=== PATIENT | male | born 1990 | race Caucasian/White ===

== ENCOUNTER 2021-08-25 16:53 | Emergency (ER) | payer OTHER ==
[~2021-08-25] VITALS: Ht 175 cm; Wt 100.0 kg
--- NOTE | 2021-08-25 18:21 | ED Cardiac General ---
History of Present Illness General Chief Complaint: Cardiac/General Problems Stated Complaint: CP/PALPITATIONS Nursing Triage Note: PT TO ED W/ C/O PALPITATIONS ET CP ONSET 90 MINUTES PRIOR TO COMING TO ED AFTER GETTING OUT OF SHOWER AT HOME. PT STATES "THIS HAS HAPPENED BEFORE" ET REPORTS A CARDIAC HX. STATES WHEN SYMPTOMS ONSET, HE HAS CP, N/V. NO OTHER C/O VOICED. PT APPEARS TO BE SUNBURNED ET REPORTS ETOH CONSUMPTION YESTERDAY. Source: patient Exam Limitations: no limitations History of Present Illness Date Seen by Provider: Aug 25, 2021 Time Seen by Provider: 18:10 Initial Comments Here with report of palpitations started this afternoon and lasted around 90 minutes. Does have history of paroxysmal atrial tachycardia and is following up with a coat operator for that. Reports that he had some nausea and vomiting with this. Admits to being out in the sun [place] [employer] yesterday and does have a sunburn to his arms and legs. Admits to drinking quite a bit as well. States he may have had a bit of a hangover this morning as well. Heart rate is now improved. Aside from nausea and vomiting, denies other symptoms. Timing/Duration: 1-3 hours Severity: moderate (Palpitations) Location: central Activities at Onset: none Prior CP/Workup: other (Cardiac work-up in process) Modifying Factors: improves with rest ASA po ELECTION ASSISTANT: No Associated Systoms: No Cough, No Fever/Chills; Nausea/Vomiting; No Shortness of Air, No Weakness Allergies and Home Medications Allergies Coded Allergies: No Known Drug Allergies (Unverified , 12/24/11) Patient Home Medication List Home Medication List Reviewed: Yes Review of Systems Review of Systems Constitutional: see HPI; No chills, No fever EENTM: No Symptoms Reported Respiratory: Denies Cough, Denies Shortness of Air Cardiovascular: Chest Pain, Palpitations Gastrointestinal: Denies Abdominal Pain; Nausea, Vomiting Genitourinary: No Symptoms Reported Musculoskeletal: no symptoms reported All Other Systems Reviewed Negative Unless Noted: Yes Past Tjfupmc-Fjithd-Brlmty Hx Patient Social History Tobacco Use?: No Use of E-Cig and/or Vaping dev: No Substance use?: No Alcohol Use?: Yes Alcohol Frequency: Rarely Pt feels they are or have been: No Past Medical History Surgeries: No Respiratory: No Cardiac: Yes Palpitations Neurological: No Family Medical History Reviewed Nursing Family Hx No Pertinent Family Hx Physical Exam Vital Signs Vital Signs - First Documented 08/25/21 17:14 Temp 36.9 Pulse 72 Resp 18 B/P (MAP) 122/84 (97) Pulse Ox 99 O2 Delivery Room Air Capillary Refill : Greater Than 3 Seconds Height, Weight, BMI Height: '" Weight: lbs. oz. kg; 32.00 BMI Method:Stated General Appearance: No Apparent Distress, WD/WN HEENT: PERRL/EOMI, Pharynx Normal Neck: Non Tender, Supple Respiratory: Lungs Clear, Normal Breath Sounds Cardiovascular: Regular Rate, Rhythm, No Murmur Gastrointestinal: Non Tender, Soft Extremity: Normal Range of Motion, Non Tender Neurologic/Psychiatric: Alert, Oriented x3 Skin: Normal Color, Warm/Dry Progress/Results/Core Measures Results/Orders Lab Results Laboratory Tests Test 08/25/21 17:33 Range/Units White Blood Count 7.1 4.3-11.0 10^3/uL Red Blood Count 4.89 4.30-5.52 10^6/uL Hemoglobin 14.8 13.3-17.7 g/dL Hematocrit 43 40-54 % Mean Corpuscular Volume 89 80-99 fL Mean Corpuscular Hemoglobin 30 25-34 pg Mean Corpuscular Hemoglobin Concent 34 32-36 g/dL Red Cell Distribution Width 13.0 10.0-14.5 % Platelet Count 232 130-400 10^3/uL Mean Platelet Volume 9.4 9.0-12.2 fL Immature Granulocyte % (Auto) 0 % Neutrophils (%) (Auto) 67 42-75 % Lymphocytes (%) (Auto) 17 12-44 % Monocytes (%) (Auto) 11 0-12 % Eosinophils (%) (Auto) 3 0-10 % Basophils (%) (Auto) 1 0-10 % Neutrophils # (Auto) 4.7 1.8-7.8 10^3/uL Lymphocytes # (Auto) 1.2 1.0-4.0 10^3/uL Monocytes # (Auto) 0.8 0.0-1.0 10^3/uL Eosinophils # (Auto) 0.2 0.0-0.3 10^3/uL Basophils # (Auto) 0.1 0.0-0.1 10^3/uL Immature Granulocyte # (Auto) 0.0 0.0-0.1 10^3/uL Sodium Level 139 135-145 MMOL/L Potassium Level 4.0 3.6-5.0 MMOL/L Chloride Level 102 98-107 MMOL/L Carbon Dioxide Level 24 21-32 MMOL/L Anion Gap 13 5-14 MMOL/L Blood Urea Nitrogen 12 7-18 MG/DL Creatinine 1.31 H 0.60-1.30 MG/DL Estimat Glomerular Filtration Rate 76 BUN/Creatinine Ratio 9 Glucose Level 97 70-105 MG/DL Calcium Level 9.5 8.5-10.1 MG/DL Corrected Calcium 9.2 8.5-10.1 MG/DL Total Bilirubin 1.7 H 0.1-1.0 MG/DL Aspartate Amino Transf (AST/SGOT) 48 H 5-34 U/L Alanine Aminotransferase (ALT/SGPT) 62 H 0-55 U/L Alkaline Phosphatase 65 40-136 U/L Troponin I < 0.028 <0.028 NG/ML Total Protein 7.6 6.4-8.2 GM/DL Albumin 4.4 3.2-4.5 GM/DL My Orders Orders - DOLLY WOLF MD Cbc With Automated Diff (08/25/21 18:19) Comprehensive Metabolic Panel (08/25/21 18:19) Troponin I Leta (08/25/21 18:19) Ed Iv/Invasive Line Start (08/25/21 18:19) Lactated Ringers (Lr 1000 Ml Iv Solution (08/25/21 18:30) Medications Given in ED Current Medications Medications Dose Ordered Sig/Navid Route Start Time Stop Time Status Last Admin Dose Admin Lactated Ringer's 1,000 ml @ 0 mls/hr Q0M ONCE IV 08/25/21 18:30 08/25/21 18:34 DC 08/25/21 18:25 0 MLS/HR Vital Signs/I&O 08/25/21 08/25/21 17:14 18:54 Temp 36.9 Pulse 72 62 Resp 18 14 B/P (MAP) 122/84 (97) 109/73 Pulse Ox 99 97 O2 Delivery Room Air Room Air Blood Pressure Mean: 97 Progress Progress Note : Progress Note Seen and evaluated. IV, labs and EKG ordered. LR 1 L bolus. Monitor patient. 1900: Heart rate now high 50s low 60s and no pain. Labs reviewed. No indication for further evaluation and patient is more towards baseline. I do believe this is likely a mixed picture with his atrial tachycardia and dehydration after drinking yesterday. This was discussed with patient and family. Overall he is feeling better so we will discharge home. Discharged home with return precautions. Patient verbalized understanding instructions and agreement with plan. Initial ECG Impression Date: Aug 25, 2021 Initial ECG Impression Time: 17:25 Initial ECG Rate: 76 Initial ECG Rhythm: Normal Sinus Comment Sinus rhythm with left anterior fascicular block. Left axis deviation. No evidence of ST elevation DE. No previous available for comparison. Interpreted by me. Departure Impression Primary Impression: Paroxysmal atrial tachycardia Additional Impression: Dehydration Disposition: 01 HOME, SELF-CARE Condition: Improved Departure-Patient Inst. Decision time for Depature: 18:53 Referrals: NO,LOCAL PHYSICIAN (PCP/Family) Primary Care Physician Patient Instructions: Dehydration, Adult ED, Paroxysmal Supraventricular Tachycardia (DC), Sunburn (DC) Add. Discharge Instructions: All discharge instructions reviewed with patient and/or family. Voiced understanding. Ensure you are drinking plenty of fluids. Minimize alcohol intake as this may increase her risk for the atrial tachycardia. Follow-up with your coat operator as scheduled. Return for worse pain, vomiting, weakness, breathing problems, persistent tachycardia or other concerns as needed. DOLLY WOLF MD Aug 25, 2021 18:21
[2021-08-25 18:24] LABS: BASOPHILS # (AUTO) 0.1 10^3/uL (0.0-0.1); BASOPHILS % (AUTO) 1 % (0-10); EOSINOPHILS # (AUTO) 0.2 10^3/uL (0.0-0.3); EOSINOPHILS % (AUTO) 3 % (0-10); HEMATOCRIT 43 % (40-54); HEMOGLOBIN 14.8 g/dL (13.3-17.7); LYMPHOCYTES # (AUTO) 1.2 10^3/uL (1.0-4.0); LYMPHOCYTES % (AUTO) 17 % (12-44); MEAN CORPUSCULAR HEMOGLOBIN 30 pg (25-34); MEAN CORPUSCULAR HGB CONC 34 g/dL (32-36); MEAN CORPUSCULAR VOLUME 89 fL (80-99); MEAN PLATELET VOLUME 9.4 fL (9.0-12.2); MONOCYTES # (AUTO) 0.8 10^3/uL (0.0-1.0); MONOCYTES % (AUTO) 11 % (0-12); NEUTROPHILS # (AUTO) 4.7 10^3/uL (1.8-7.8); NEUTROPHILS % (AUTO) 67 % (42-75); PLATELET COUNT 232 10^3/uL (130-400); WHITE BLOOD COUNT 7.1 10^3/uL (4.3-11.0)
[2021-08-25 18:30] LABS: ALBUMIN 4.4 GM/DL (3.2-4.5); CHLORIDE 102 MMOL/L (98-107); SODIUM 139 MMOL/L (135-145)
[2021-08-25] MEDS ORDERED: LACTATED RINGERS 1,000 ML IV ONE (18:30)
[2021-08-25 18:31] LABS: CALCIUM 9.5 MG/DL (8.5-10.1)
[2021-08-25 18:32] LABS: GLUCOSE 97 MG/DL (70-105); TOTAL PROTEIN 7.6 GM/DL (6.4-8.2)
[2021-08-25 18:33] LABS: CARBON DIOXIDE 24 MMOL/L (21-32)
[2021-08-25 18:34] LABS: BILIRUBIN,TOTAL 1.7 MG/DL (0.1-1.0)
[2021-08-25 18:36] LABS: ALKALINE PHOSPHATASE 65 U/L (40-136); CREATININE SERUM 1.31 MG/DL (0.60-1.30); GFR ESTIMATED 76
[2021-08-25 18:37] LABS: BUN/CREATININE RATIO 9
[2021-08-25 18:39] LABS: ALANINE AMINOTRANSFERASE 62 U/L (0-55)
[2021-08-25 18:54] VITALS: BP 109/73
== END 2021-08-25 19:04 | disposition home or self-care (01) ==
LOC: EDUNIT# 16:53 → ER 16:55
DX: I47.1 Supraventricular tachycardia (principal); E86.0 Dehydration
CPT/HCPCS: 36415; 80053; 84484; 85025; 93005